=== PATIENT | male | born 1990 | race African-American/Black ===

== ENCOUNTER 2017-07-21 22:37 | Emergency (ER) | payer SELFPAY ==
[~2017-07-21 22:37] MED LIST: NAPR550T3 PO
[2017-07-21 22:39] VITALS: BP 117/80; PULSE 72; RESP 16; TEMP 98.2; O2SAT 98
--- NOTE | 2017-07-21 23:15 | PD ---
HPI Chief Complaint: Musculoskeletal Complaint Time Seen by Provider: 23:08 Travel History International Travel<30 days: No Contact w/Intl Traveler<30days: No Traveled to known affect area: No History of Present Illness HPI 26-year-old male complains of right wrist and right forearm pain. Patient states that he fell today. Patient denies loss of consciousness. Patient denies headache or neck pain. Patient denies any chest pain or shortness of breath. Patient denies abdominal pain. Patient denies any focal weakness or numbness of extremity. Patient denies any other injury. PFSH Social History Alcohol Use: No Tobacco Use: No Substance Use: No Allergies-Medications (Allergen,Severity, Reaction): Coded Allergies: No Known Allergies (Verified , 07/21/17) Reported Meds & Prescriptions Reported Meds & Active Scripts Active Review of Systems General / Constitutional: No: Fever Eyes: No: Visual changes HENT: No: Headaches Cardiovascular: No: Chest Pain or Discomfort Respiratory: No: Shortness of Breath Gastrointestinal: No: Abdominal Pain Genitourinary: No: Dysuria Musculoskeletal: Positive: Pain Skin: No Rash Neurologic: No: Weakness Psychiatric: No: Depression Endocrine: No: Polydipsia Hematologic/Lymphatic: No: Easy Bruising Physical Exam Narrative GENERAL: Well-nourished, well-developed patient. SKIN: Focused skin assessment warm/dry. HEAD: Normocephalic. EYES: No scleral icterus. No injection or drainage. NECK: Supple, trachea midline. No JVD or lymphadenopathy. CARDIOVASCULAR: Regular rate and rhythm without murmurs, gallops, or rubs. RESPIRATORY: Breath sounds equal bilaterally. No accessory muscle use. GASTROINTESTINAL: Abdomen soft, non-tender, nondistended. MUSCULOSKELETAL: Patient has soft tissue swelling tenderness distal radius and ulnar aspect of the right wrist area. Limited range of motion of the fingers secondary to pain. Sensorimotor function intact. Good capillary refill. BACK: Nontender without obvious deformity. No CVA tenderness. Data Data Last Documented VS Vital Signs Date Time Temp Pulse Resp B/P (MAP) Pulse Ox O2 Delivery O2 Flow Rate FiO2 07/21/17 23:12 20 07/21/17 22:39 98.2 72 117/80 (92) 98 Room Air Orders Orders Forearm (2vws) (07/21/17 23:11) Wrist, Complete ([id number]) (07/21/17 23:11) [facility] Medical Decision Making Medical Screen Exam Complete: Yes Emergency Medical Condition: Yes Interpretation(s) X-ray right wrist and right forearm shows no acute bony injury. Differential Diagnosis Differential diagnosis including fracture dislocation. Narrative Course 26-year-old male with right wrist and distal right forearm injury. Status post fall. Diagnosis Primary Impression: Sprain of right wrist Qualified Codes: S63.501A - Unspecified sprain of right wrist, initial encounter Patient Instructions: General Instructions Additional Instructions: Ibuprofen as needed for pain. Ice pack as needed. Velcro wrist splint. Follow -up with orthopedist if persistent problem. Med/Other Pt SpecificInfo: Prescription(s) given Scripts Ibuprofen (Ibuprofen) 600 Mg Tab 600 MG PO TID for Pain, #30 TAB 0 Refills Prov: Reji Verma MD 07/22/17 Disposition: 01 DISCHARGE HOME Condition: Stable Reji Verma MD Jul 21, 2017 23:15
--- NOTE | 2017-07-21 23:57 | RADRPT ---
EXAM DATE/TIME: 07/22/2017 00:09 [facility] COMPARISON: No previous studies available for comparison. INDICATIONS : Right wrist pain from trauma sustained playing football. MEDICAL HISTORY : None. SURGICAL HISTORY : None. ENCOUNTER: Initial ACUITY: 1 day PAIN SCORE: 10/10 LOCATION: Right wrist FINDINGS: Three view examination of the right wrist demonstrates no soft tissue swelling, dislocation, or fract ure. The carpal bones are in normal alignment. The joint spaces are maintained. Bony mineralizatio n is normal. CONCLUSION: No acute fracture. Fadi Huynh MD on July 21, 2017 at 23:55 Board Certified Radiologist. This report was verified electronically.
--- NOTE | 2017-07-21 23:57 | RADRPT ---
EXAM DATE/TIME: 07/22/2017 00:15 [facility] COMPARISON: No previous studies available for comparison. INDICATIONS : Right wrist pain from trauma sustained playing football. MEDICAL HISTORY : None. SURGICAL HISTORY : None. ENCOUNTER: Initial ACUITY: 1 day PAIN SCORE: 10/10 LOCATION: Right wrist FINDINGS: Two view examination of the right forearm demonstrates no evidence of fracture or dislocation. Bony mineralization is normal. The soft tissue structures are intact. CONCLUSION: No acute fracture. Fadi Huynh MD on July 21, 2017 at 23:56 Board Certified Radiologist. This report was verified electronically.
[2017-07-22] MEDS ORDERED: IBUP-232 PO (00:02)
[2017-07-22 00:27] VITALS: BP 114/70
== END 2017-07-22 00:27 | disposition home or self-care (01) ==
LOC: NEPD 22:37
DX: S63.501A Unspecified sprain of right wrist, initial encounter (principal); W19.XXXA Unspecified fall, initial encounter
CPT/HCPCS: 73090; 73110; 99283; L3908